=== PATIENT | male | born 1985 | race Two or more races ===

== ENCOUNTER 2020-09-19 18:26 | Emergency (ER) | payer OTHER ==
[~2020-09-19] VITALS: Ht 167.6 cm; Wt 87.2 kg
[2020-09-19 19:36] LABS: RAPID INFLUENZA A Negative (Negative); RAPID INFLUENZA B Negative (Negative)
[2020-09-19] MEDS ORDERED: IBUPROFEN 200 MG TABLET ONE (19:45)
[2020-09-19] MEDS ORDERED: DEXAMETHASONE 4 MG TABLET ONE (19:46)
[2020-09-19 19:53] VITALS: BP 123/86
[2020-09-19] MEDS ORDERED: IBUPROFEN 200 MG TABLET PO ONE (20:00)
[2020-09-19] MEDS ORDERED: DEXAMETHASONE 4 MG/ML, 1ML PO ONE (20:00)
--- NOTE | 2020-09-19 20:40 | NUR ---
Patient given discharge instructions and they have confirmed that they understand the instructions. Patient ambulatory with steady gait.
== END 2020-09-19 20:41 | disposition home or self-care (01) ==
LOC: ED 20:06
DX: J02.0 Streptococcal pharyngitis (principal); Z20.822 Contact with and (suspected) exposure to COVID-19; R51.9 Headache, unspecified; M79.10 Myalgia, unspecified site
CPT/HCPCS: 87400; 87880; 99283; J1100; U0003; U0005